=== PATIENT | female | born 1990 | race American Indian/Alaskan Native ===

== ENCOUNTER 2016-06-12 00:11 | Inpatient (IN) | payer MEDICAID ==
[2016-06-12] MEDS ORDERED: XYLOCAINE 2% INFILTRATI ONE ×2 (00:40→06:11)
[2016-06-12] MEDS ORDERED: POLYCILLIN/NS 2 GM/100 ML 2 GM/100 ML BAG IV ONE (00:40)
[2016-06-12] MEDS ORDERED: MINERAL OIL PO PRN (00:40)
[2016-06-12] MEDS ORDERED: ePHEDrine SULFATE IV PRN ×3 (00:40→07:49)
[2016-06-12] MEDS ORDERED: BRETHINE IVP PRN ×2 (00:40→06:11)
[2016-06-12] MEDS ORDERED: BRETHINE SUB-Q PRN ×2 (00:40→06:11)
[2016-06-12] MEDS ORDERED: ZOFRAN IV PRN (00:40)
[2016-06-12] MEDS ORDERED: PITOCin/NS 30 UNIT/500ML 30 UNITS/500 ML BAG IV SCH ×3 (01:00→07:00)
[2016-06-12] MEDS ORDERED: PITOCin/NS 20 UNIT/1000ML DRIP 20 UNITS/1,000 ML BAG IV SCH ×2 (01:00→07:00)
[2016-06-12] MEDS ORDERED: LACTATED RINGERS 1,000 ML IV SCH ×2 (01:00→07:00)
[2016-06-12 01:25] LABS: Hematocrit 36.9 % (30.3-42.9); Hemoglobin 12.5 gm/dl (10.1-14.3); Mean Corpuscular HGB Conc 34 % (30-34); Mean Corpuscular Hemoglobin 33 pg (28-32); Mean Corpuscular Volume 98 fl (79-97); Platelet Count 216 K/mm3 (140-440); Red Blood Count 3.77 M/mm3 (3.65-5.03); Red Cell Distribution Width 13.9 % (13.2-15.2); White Blood Count 10.7 K/mm3 (4.5-11.0)
[2016-06-12] MEDS: STADOL IV PRN ×2 (04:18→07:42)
[2016-06-12] MEDS ORDERED: POLYCILLIN/NS 1 GM/50 ML 1 GM/50 ML BAG IV SCH (05:00)
[2016-06-12] MEDS ORDERED: PHENERGAN PR PRN (06:11)
[2016-06-12] MEDS ORDERED: SUBLIMAZE IV PRN (06:11)
[2016-06-12] MEDS ORDERED: NARCAN 0.4 MG/1 ML IV PRN (06:11)
--- NOTE | 2016-06-12 06:11 | History and Physical Report ---
History of Present Illness Date of examination: 06/12/16 Date of admission: 06/12/16 01:27 Chief complaint: My water broke History of present illness: 26 yo at 40 weeks 1 day with EDC 06/11/2016, known GBS pos, previous 7# babies admitted with SROM, now in labor at 2 cm Remainder of H&P from MPV and confirmed today. OB Intake Ethnicity: Nondenominational: pentecostalism Father of baby: Leti Granado FOB contact #: [phone] Vital Signs Height: 66 in. Weight (lb): 163 BMI: 26.4 BP: 116/ 62 mm Hg Ur. Protein: Negative Ur. Glucose: Negative Chief Complaint/Current Status: c/o missed peroid...........igarcia pt c/o nauseated UPT pos Menstrual History Regularity: regular Menses every: 28 days Duration: 5 LMP: 09/05/2015 LMP reliability: definite LMP character: normal test type: urine test Date: 11/02/2015 BC at conception: BCP Planned ? no EDC Calculations LMP: 06/11/2016 Past History : 5 Term Births: 2 Living Children: 2 Para: 2 Mult. Births: 0 Prev : 0 Aborta: 2 Elect. Ab: 1 Spont. Ab: 1 # 1 Delivery date: 2007 Delivery type: SAB # 2 Delivery date: 2008 Delivery type: EAB # 3 Delivery date: 2009 Weeks Gestation: 39 Delivery type: Delivery location: [facility] Sex: Male weight: 7# # 4 Delivery date: 2013 Weeks Gestation: 40 Delivery type: Delivery location: [facility] Infant Sex: Female weight: 6#14 Past Medical History: Negative Past Medical History Past Surgical History: negative Past Medical History Anesthesia Complications: negative Anemia: negative Autoimmune Disorder: negative Bleeding Disorder: negative Blood Transfusions: negative Breast Disease: negative Diabetes: negative Heart Disease: negative Hypertension: negative Hepatitis/Liver Disease: negative Kidney Disease/UTI: negative Neurologic/Epilepsy/Migraines: negative Phlebitis/Varicosities: negative Psychiatric: negative Pulmonary Disease/Asthma: negative Thyroid Disease: negative Hospitalizations: negative 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 Infection History Hx of STD: chlamydia HIV Risk Eval: no Hepatitis B Risk Eval: low risk Personal hx. of genital herpes: no Partner hx. of genital herpes: no Rash, Viral, or Febrile illness since last LMP? no Varicella/Chicken Pox Status: Previous Disease TB Risk: no Genetic History Congenital Heart Defect: Mom: no Dad: no Leslee Disease: Mom: no Dad: no Thalassemia Mom: no Dad: no Neural Tube Defect Mom: no Dad: no Down's Syndrome Mom: no Dad: no Kasi-Sachs Mom: no Dad: no Sickle Cell Disease/Trait Mom: no Dad: no Hemophilia Mom: no Dad: no Muscular Dystrophy Mom: no Dad: no Cystic Fibrosis Mom: no Dad: no [place] Chorea Mom: no Dad: no Mental Retardation Mom: no Dad: no Fragile X Mom: no Dad: no Other Genetic/Chromosomal Disorder Mom: no Dad: no Child w/other defect Mom: no Dad: no Enviromental Exposures Xray Exposure: no Medication, drug, or alcohol use since LMP: no Chemical/Other Exposure: no Exposure to Cat Liter: no Hx of Parvovirus (Fifth Disease): no Occupational Exposure to Children: none Active Medications (reviewed today): None Current Allergies (reviewed today): No known allergies Laboratory Results Date/Time Collected: 11/02/2015 Routine Urinalysis Protein: Negative Glucose: Negative Urine HCG: positive Review of Systems General Denies fever, chills, sweats, anorexia, fatigue, weakness, malaise, weight loss and sleep disorder. Complains of nausea. Denies vomiting, headache, swelling of legs, abdominal pain, vaginal discharge, vaginal bleeding and contractions. Denies vaginal discharge, incontinence, dysuria, hematuria, urinary frequency, amenorrhea, menorrhagia, abnormal vaginal bleeding, pelvic pain, genital sores, decreased libido, painful periods, painful sex, urinary urgency, hot flashes, vaginal dryness, vaginal itching and vaginal odor. CV Denies chest pains, palpitations, syncope, dyspnea on exertion, orthopnea, PND and peripheral edema. Resp Denies cough, dyspnea at rest, excessive sputum, hemoptysis, wheezing and pleurisy. GI Denies nausea, vomiting, diarrhea, constipation, change in bowel habits, abdominal pain, melena, hematochezia, jaundice, gas/bloating, indigestion/ heartburn, dysphagia and odynophagia. Endo Denies cold intolerance, heat intolerance, polydipsia, polyphagia, polyuria and unusual weight change. Breast Denies left breast lump, right breast lump, nipple discharge, bloody discharge from nipple, breast pain, abnormal mammogram and breast enlargement. MS Denies back pain, joint pain, joint swelling, muscle cramps, muscle weakness, stiffness, arthritis, sciatica, restless legs, leg pain at night and leg pain with exertion. Derm Denies rash, itching, dryness and suspicious lesions. Neuro Denies paralysis, paresthesias, headache, seizures, tremors, vertigo, transient blindness, frequent falls, frequent headaches and difficulty walking. Psych Denies depression, anxiety, irritability and mood swings. Eyes Denies blurring, diplopia, irritation, discharge, vision loss, eye pain and photophobia. ENT Denies earache, ear discharge, tinnitus, decreased hearing, nasal congestion, nosebleeds, sore throat and hoarseness. Allergy Denies urticaria, allergic rash, hay fever and recurrent infections. Heme Denies abnormal bruising, bleeding and enlarged lymph nodes. PHYSICAL EXAM HEENT: PERRLA, normal conjunctiva, external nose and nasal mucosa normal, oropharynx clear Neck/Thyroid: supple, thyroid normal Skin no significant abnormal lesions or rashes Chest: respiratory effort normal, clear to auscultation Breasts: normal without skin changes or masses CV: regular, normal S1-S2, no murmur, no rub, no gallop Abdomen: normal bowel sounds, soft, nontender, no HSM Musculoskeletal: grossly normal ROM in joints, no joint tenderness or muscle weakness Neuro: grossly normal DTRs, sensation, strength, cranial nerves Extremities: no clubbing, cyanosis, or edema BATH TESTER Exams Vulva/Vagina: No lesions, normal BUS, normal rugae Cervix: No lesions; no cervical motion tenderness Uterus: normal size and position, midline, mobile Fundal Ht: ~8 Adnexae: no masses or tenderness Rectovaginal: no masses or tenderness Flowsheet View for Follow-up Visit Weight: 163 Blood pressure: 116 / 62 Urine protein: Negative Urine glucose: Negative Fundal height: ~8 Education Provided: 1) Education provided today and information packet given. 2) Education packet given; please call if you have any questions. 3) Review normal weight gain and proper nutrition during . 4) Advice on healthy diet for reviewed and information provided. 5) Elevate head of bed at least 6 inches (raise bed posts not just with pillows ); small frequent meals and take TUMS as needed. 6) Stressed importance of taking folic acid and vitamins. 7) Recommended referral to WIC program; information given, patient to consider. 8) Stressed importance of good dental care and information given. 9) Hazards of smoking and reviewed; smoking cessation strongly encouraged and smoking cessation techniques reviewed. 10) Stressed the risks of alcohol and drug use in including risk of premature delivery, small baby (SGA), abruption, and . 11) Advised to avoid intimate contact with cats, avoid cat litter, and the ingestion of raw meat. 12) Reviewed recommended physical activity level during . 13) Information regarding travel during reviewed and given. 14) Seat belt use during reviewed. 15) Patient Will deliver at [facility]. Impression & Recommendations: Problem # 1: Irregular menses (ICD-626.4) ([id number]) Orders: Urine Test (UPT) (CPT-59831) Vaginal Delivery (CPT-27134) Ofc Vst New (CPT-34742) Handling specimen fee (CPT-77161) Pap(<30yo) CT/NG rflx HR HPV ([id number])([id number]) (CPT-74363) Missed period US (CPT-13298) Urine Chemstrip (CPT-77755) Past History - Obstetrical History : 5 Medications and Allergies Allergies Allergy/AdvReac Type Severity Reaction Status Date / Time No Known Allergies Allergy Verified 05/30/13 09:24 Home Medications Medication Instructions Recorded Confirmed Last Taken Type Pnv95/Ferrous Fumarate/FA 1 each PO QDAY 05/02/13 05/30/13 05/30/13 07:00 History [ Vitamins] Ibuprofen [Motrin 600 MG tab] 600 mg PO Q8H PRN #21 tablet 07/14/13 Unknown Rx Active Meds: Active Medications Butorphanol Tartrate (Stadol) 2 mg IV Q2H PRN PRN Reason: Pain , Severe (7-10) Last Admin: 06/12/16 04:18 Dose: 2 mg Ampicillin Sodium (Polycillin/Ns 1 Gm/50 Ml) 1 gm in 50 mls @ 100 mls/hr IV Q4H CHRISTEL PRN Reason: Protocol Last Admin: 06/12/16 05:47 Dose: 100 mls/hr Lactated Ringer's (Lactated Ringers) 1,000 mls @ 125 mls/hr IV DIRECT CHRISTEL Last Admin: 06/12/16 01:40 Dose: 125 mls/hr Oxytocin/Sodium Chloride (Pitocin/Ns 20 Unit/1000ml Drip) 20 units in 1,000 mls @ 125 mls/hr IV DIRECT CHRISTEL Oxytocin/Sodium Chloride (Pitocin/Ns 30 Unit/500ml) 30 units in 500 mls @ 4 mls /hr IV TITR CHRISTEL PRN Reason: Protocol Last Titration: 06/12/16 03:55 Dose: 6 mls/hr, 6 mls/hr Mineral Oil (Mineral Oil) 30 ml PO QHS PRN PRN Reason: Constipation Ondansetron HCl (Zofran) 4 mg IV Q8H PRN PRN Reason: Nausea And Vomiting - Vital Signs Vital signs: Vital Signs Pulse BP 88 135/90 06/12/16 00:37 06/12/16 00:37 Temp Pulse Resp BP Pulse Ox 97.8 F 85 16 121/76 98 06/12/16 05:53 06/12/16 05:41 06/12/16 05:53 06/12/16 05:41 06/12/16 01:26 Results Result Diagrams: 06/12/16 00:52 Abnormal lab results 06/12/16 Range/Units 00:52 MCV 98 H (79-97) fl MCH 33 H (28-32) pg All other labs normal. Assessment and Plan - Patient Problems (1) Active labor at term Current Visit: Yes Status: Acute
[2016-06-12] MEDS ORDERED: ePHEDrine SULFATE ONE (07:14)
--- NOTE | 2016-06-12 07:39 | Progress Note ---
Assessment and Plan pt crying out with pain SVE 6,100,0 ISE/IUPC placed Pit @ 8mu. Bolus complete Epidural to be placed. Subjective - Subjective Date of service: 06/12/16 (variable decels noted) Patient reports: movement normal, contractions (req epidural) Objective - Vital Signs Vital Signs: Vital Signs - 12hr 06/12/16 06/12/16 06/12/16 00:37 00:45 01:08 Temperature 98.3 F Pulse Rate 88 86 Respiratory 18 Rate Blood Pressure 135/90 131/91 O2 Sat by Pulse Oximetry 06/12/16 06/12/16 06/12/16 01:16 01:21 01:26 Temperature Pulse Rate 92 H 74 84 Respiratory Rate Blood Pressure O2 Sat by Pulse 98 97 98 Oximetry 06/12/16 06/12/16 06/12/16 01:41 02:10 02:40 Temperature Pulse Rate 83 79 91 H Respiratory Rate Blood Pressure 126/78 128/80 139/99 O2 Sat by Pulse Oximetry 06/12/16 06/12/16 06/12/16 03:12 03:42 04:12 Temperature Pulse Rate 86 78 78 Respiratory Rate Blood Pressure 121/78 127/78 139/84 O2 Sat by Pulse Oximetry 06/12/16 06/12/16 06/12/16 04:41 05:11 05:41 Temperature Pulse Rate 73 79 85 Respiratory Rate Blood Pressure 125/66 128/69 121/76 O2 Sat by Pulse Oximetry 06/12/16 06/12/16 06/12/16 05:53 06:11 06:41 Temperature 97.8 F Pulse Rate 72 84 Respiratory 16 Rate Blood Pressure 135/73 133/79 O2 Sat by Pulse Oximetry 06/12/16 06/12/16 06/12/16 07:03 07:08 07:11 Temperature Pulse Rate 78 92 H 82 Respiratory Rate Blood Pressure 128/60 O2 Sat by Pulse 98 100 Oximetry 06/12/16 06/12/16 06/12/16 07:13 07:18 07:23 Temperature Pulse Rate 89 90 100 H Respiratory Rate Blood Pressure O2 Sat by Pulse 98 100 100 Oximetry 06/12/16 06/12/16 07:28 07:33 Temperature Pulse Rate 92 H 111 H Respiratory Rate Blood Pressure O2 Sat by Pulse 100 98 Oximetry - Exam Breasts: deferred Cardiovascular: Regular rate Lungs: Normal air movement Abdomen: Present: normal appearance, soft. Absent: distention, tenderness Uterus: Present: normal FHR: auscultation normal, category 1 Uterine Contraction Monitor Mode: Internal Cervical Dilatation: 6 (ISE/IUPC placed) Cervical Effacement Percentage: 100 station: 0 Uterine Contraction Pattern: Regular Uterine Tone Measurement Phase: Resting Uterine Contraction Intensity: Moderate Extremities: normal Deep Tendon Reflex Grade: Normal +2 - Labs Labs: Abnormal Labs 06/12/16 00:52 MCV 98 H MCH 33 H Laboratory Results - last 24 hr 06/12/16 06/12/16 00:52 00:52 WBC 10.7 RBC 3.77 Hgb 12.5 Hct 36.9 MCV 98 H MCH 33 H MCHC 34 RDW 13.9 Plt Count 216 Blood Type O POSITIVE Antibody Screen Negative
[2016-06-12] MEDS ORDERED: NARCAN 2 MG/2 ML IV PRN (07:49)
--- NOTE | 2016-06-12 07:49 | Anesthesia Consultation ---
Anesthesia Consult and Med Hx Date of service: 06/12/16 - Airway Anesthetic Teeth Evaluation: Good ROM Head & Neck: Adequate Mental/Hyoid Distance: Adequate Mallampati Class: Class II Intubation Access Assessment: Good - Pulmonary Exam CTA: Yes - Cardiac Exam Cardiac Exam: No Murmur - Pre-Operative Health Status ASA Pre-Surgery Classification: ASA2 Proposed Anesthetic Plan: Epidural - Pulmonary Hx Smoking: No Hx Asthma: No Hx Respiratory Symptoms: No SOB: No COPD: No Hx Pneumonia: No Hx Sleep Apnea: No - Cardiovascular System Hx Hypertension: No Hx Coronary Artery Disease: No Hx Heart Attack/AMI: No Hx Angina: No Hx Percutaneous Transluminal Coronary Angioplasty (PTCA): No Hx Cardia Arrhythmia: No Hx Pacemaker: No Hx Internal Defibrillator: No Hx Valvular Heart Disease: No Hx Heart Murmur: No Hx Peripheral Vascular Disease: No - Central Nervous System Hx Neuromuscular Disorder: No Hx Seizures: No CVA: No Hx Back Pain: No Hx Psychiatric Problems: No - Gastrointestinal Hx Ulcer: No Hx Gastroesophageal Reflux Disease: No - Endocrine Hx Renal Disease: No Hx End Stage Renal Disease: No Hx Liver Disease: No Hx Insulin Dependent Diabetes: No Hx Non-Insulin Dependent Diabetes: No Hx Thyroid Disease: No Hx Hypothyroidism: No Hx Hyperthyroidism: No - Hematic Hx Anemia: No Hx Sickle Cell Disease: No - Other Systems Hx Alcohol Use: Yes Hx Substance Use: No Hx Cancer: No Hx Obesity: No
[2016-06-12] MEDS ORDERED: fentaNYL-BUPIV 2 MCG/ML-0.125% 200 MCG/100 ML BAG EPIDURAL SCH (08:00)
[2016-06-12] MEDS ORDERED: LANSINOH TP PRN (08:57)
[2016-06-12] MEDS ORDERED: PHENERGAN PO PRN (08:57)
[2016-06-12] MEDS ORDERED: DERMOPLAST TP PRN (08:57)
[2016-06-12] MEDS ORDERED: DULCOLAX PR PRN (08:57)
[2016-06-12] MEDS ORDERED: MILK OF MAGNESIA PO PRN (08:57)
[2016-06-12] MEDS ORDERED: TUCKS PAD TP PRN (08:57)
[2016-06-12] MEDS ORDERED: TYLENOL PO PRN (08:57)
[2016-06-12] MEDS ORDERED: BENADRYL PO PRN (08:57)
[2016-06-12] MEDS ORDERED: SODIUM CHLORIDE FLUSH SYRINGE 10 ML IV NR (09:00)
[2016-06-12] MEDS ORDERED: COLACE PO SCH (10:00)
[2016-06-12] MEDS ORDERED: PRENATAL VITAMIN PO SCH (10:00)
[2016-06-12] MEDS: NORCO 5/325 PO PRN ×2 (11:25→17:45)
[2016-06-12] MEDS: MOTRIN PO SCH ×3 (11:27→23:54)
--- NOTE | 2016-06-12 13:46 | Procedure Note ---
OB Delivery Note - Delivery Date of Delivery: 06/12/16 Model Technician: SHELLEY ESPINOSA Estimated blood loss: other (400cc) - Vaginal Delivery presentation: vertex Delivery position: OA Intrapartum events: meconium Delivery induction: none Delivery augmentation: pitocin Delivery monitor: internal FHT, internal uterine Route of delivery: Delivery placenta: spontaneous Delivery cord: 3 umbilical vessels Episiotomy: none Delivery laceration: none Anesthesia: epidural Delivery comments: live born male over intact perineum Baby handed to waiting NICU team immediately due to thick meconium. Cord blood obt Placenta and membrane delivered complete and intact, 3 vessel cord. Pit IVFs Baby responded well to stim, suction, drying. 8/9, EBL 400, Wgt 8-11. Mom and baby remain LDR stable - Infant A at 1 minute: 8 at 5 minutes: 9 Infant Gender: Male (wgt 8-11)
[2016-06-13 01:01] LABS: Hematocrit 30.7 % (30.3-42.9); Hemoglobin 10.2 gm/dl (10.1-14.3)
[2016-06-13] MEDS: MOTRIN PO SCH (05:42)
--- NOTE | 2016-06-13 08:23 | Discharge Summary ---
Providers - Providers Date of Admission: 06/12/16 01:27 Date of discharge: 06/13/16 (desires d/c home today) Attending physician: TRACY RICHMOND Primary care physician: TRACY RICHMOND Hospitalization Reason for admission: active labor Delivery: Episiotomy: none Laceration: none Other procedures: none complications: none Discharge diagnosis: IUP at term delivered baby: male Hospital course: uncomplicated vaginal Condition at discharge: Good Disposition: DISCHARGED TO HOME OR SELFCARE - Discharge Diagnoses (1) (normal spontaneous vaginal delivery) Status: Acute Plan - Provider Discharge Summary Activity: routine, no sex for 6 weeks, no heavy lifting 4 weeks, no strenuous exercise Diet: routine Instructions: routine Additional instructions: [] Smoking cessation referral if applicable(refer to patient education folder for contact #) [] Refer to [facility] Booklet Call your doctor immediately for: * Fever > 100.5 * Heavy vaginal bleeding ( >1 pad per hour) * Severe persistent headache * Shortness of breath * Reddened, hot, painful area to leg or breast * Drainage or odor from incision. * Keep incision clean and dry at all times and follow doctor's instructions regarding bathing/showering - Follow up plan Follow up: TRACY RICHMOND MD [Primary Care Provider] - 7 Days (Congratulations! Please call [phone] to schedule your son's circumcision in 1 week and your visit in 4-6 weeks. bring EMLA cream with you to your son's appointment and await further instructions. Call for any questions or concerns.)
--- NOTE | 2016-06-13 08:25 | Progress Note ---
Assessment and Plan patient w/o complaints, lochia scant, VSSAF, H&H stable 10.2/30.7. Patient desires d/c home today. - Patient Problems (1) (normal spontaneous vaginal delivery) Current Visit: Yes Status: Acute Subjective - Subjective Date of service: 06/13/16 Principal diagnosis: day #1 s/p Patient reports: appetite normal, voiding normally, pain well controlled, ambulating normally, no dizzy ambulation, no nauseated : doing well, nursing well Objective - Vital Signs Latest vital signs: Vital Signs Temp Pulse Pulse Resp BP BP Pulse Ox 06/13/16 00:00 98.0 F 82 20 118/67 06/12/16 16:15 98.5 F 79 20 124/82 06/12/16 12:41 98.1 F 78 20 128/78 06/12/16 10:55 98.4 F 86 20 120/80 06/12/16 10:15 82 113/70 06/12/16 10:00 74 118/69 06/12/16 09:45 71 116/67 06/12/16 09:30 84 127/74 06/12/16 09:15 85 119/70 06/12/16 09:00 85 117/69 06/12/16 08:45 86 126/70 06/12/16 08:35 89 100 06/12/16 08:30 89 127/72 100 06/12/16 08:25 80 96 Intake and Output 06/12/16 06/13/16 06/13/16 22:59 06:59 14:59 Intake Total 480 240 Output Total 1700 700 Balance -1220 -460 Intake: Oral 480 240 Output: Urine 1700 700 Void 1700 700 Other: Total, Intake Amount 120 240 Total, Output Amount 800 700 # Voids Void 1 - Exam Breasts: Present: normal Cardiovascular: Present: Regular rate Lungs: Present: Clear to auscultation, Normal air movement Abdomen: Present: normal appearance, soft Vulva: both: normal Uterus: Present: normal, firm, fundal height at umbilicus Extremities: Present: normal
[2016-06-13] MEDS ORDERED: M-M-R II VACCINE SUB-Q ONE (08:57)
[2016-06-13] MEDS ORDERED: BOOSTRIX IM ONE (08:57)
[2016-06-13 10:23] VITALS: BP 119/73
== END 2016-06-13 14:00 | disposition home or self-care (01) | DRG 775 ==
LOC: TRG 00:11 → LD 01:27 → OB 11:14
PROVIDERS: ADMIT Obstetrics & Gynecology; ATTEND Obstetrics & Gynecology
PROC: 10E0XZZ Delivery of Products of Conception, External Approach (ICD-10-PCS; principal; 2016-06-12)
PROC: 00HU33Z Insertion of Infusion Device into Spinal Canal, Percutaneous Approach (ICD-10-PCS; 2016-06-12)
PROC: 3E0R3CZ (ICD-10-PCS; 2016-06-12)
DX: O42.92 Full-term premature rupture of membranes, unspecified as to length of time between rupture and onset of labor (principal); O99.824 Streptococcus B carrier state complicating childbirth; O77.0 Labor and delivery complicated by meconium in amniotic fluid; Z3A.40 40 weeks gestation of pregnancy; Z37.0 Single live birth
CPT/HCPCS: 36415; 85014; 85018; 85027; 86592; 86850; 86900; 86901; 99211; G0463; J0290; J0595; J2405; J2590; J7120

== ENCOUNTER 2017-12-20 14:48 | Outpatient (CLI) | payer MEDICAID ==
[2017-12-20 15:30] VITALS: BP 123/73
[2017-12-20] MEDS ORDERED: VISTARIL PO PRN (16:16)
--- NOTE | 2017-12-20 16:23 | Ultrasound Report ---
FINAL REPORT EXAM: US OB LIMITED HISTORY: r/o srom COMPARISON: None. TECHNIQUE: Limited obstetric ultrasound was performed for evaluation of amniotic fluid index FINDINGS: Amniotic fluid index is 10.4 centimeters. There is a single live intrauterine in cephalic presentation. heart rate is 127 beats per minute. IMPRESSION: Normal amniotic fluid index of 10.4 centimeters.
== END 2017-12-20 16:32 | disposition home or self-care (01) ==
LOC: TRG 14:48
PROVIDERS: ATTEND Obstetrics & Gynecology
DX: O47.1 False labor at or after 37 completed weeks of gestation (principal); Z3A.39 39 weeks gestation of pregnancy
CPT/HCPCS: 76815; Q0177

== ENCOUNTER 2017-12-24 08:07 | Outpatient (CLI) | payer MEDICAID ==
[2017-12-24 08:35] VITALS: BP 118/74
== END 2017-12-24 09:30 | disposition home or self-care (01) ==
LOC: TRG 08:07
PROVIDERS: ATTEND Obstetrics & Gynecology
DX: O47.1 False labor at or after 37 completed weeks of gestation (principal); Z3A.40 40 weeks gestation of pregnancy
CPT/HCPCS: 59025

== ENCOUNTER 2017-12-29 17:13 | Inpatient (IN) | payer MEDICAID ==
[2017-12-29] MEDS ORDERED: SUBLIMAZE IV PRN (17:27)
[2017-12-29] MEDS ORDERED: MINERAL OIL PO PRN (17:27)
[2017-12-29] MEDS ORDERED: BRETHINE SUB-Q PRN (17:27)
[2017-12-29] MEDS ORDERED: ZOFRAN IV PRN (17:27)
[2017-12-29] MEDS ORDERED: POLYCILLIN/NS 2 GM/100 ML 2 GM/100 ML BAG IV ONE ×2 (17:27→17:34)
[2017-12-29] MEDS ORDERED: LACTATED RINGERS 1,000 ML ONE (17:34)
--- NOTE | 2017-12-29 17:53 | History and Physical Report ---
History of Present Illness Date of examination: 12/29/17 (SROM) Date of admission: 12/29/17 17:13 History of present illness: EDC Calculations LMP: 12/24/2017 Past History : 6 Term Births: 3 Living Children: 3 Para: 3 Mult. Births: 0 Prev : 0 Aborta: 2 Elect. Ab: 1 Spont. Ab: 1 # 1 Delivery date: 2007 Delivery type: SAB # 2 Delivery date: 2008 Delivery type: EAB # 3 Delivery date: 2009 Weeks Gestation: 39 Delivery type: Delivery location: [facility] Sex: Male weight: 7# # 4 Delivery date: 2013 Weeks Gestation: 40 Delivery type: Delivery location: [facility] Infant Sex: Female weight: 6#14 # 5 Delivery date: 06/12/2016 Weeks Gestation: 40 Delivery type: Vaginal Anesthesia type: epidural Delivery location: [facility] Infant Sex: male weight: 8.69 Comments: meconium;GBS Past Medical History: Reviewed history from 11/02/2015 and no changes required: Negative Past Medical History Past Surgical History: D&C: (2008) Family History Summary: Mother (biol.) - Has No Family History of Ovarvian Cancer - Entered On: 06/11/2017 Mother (biol.) - Has No Family History of Colon Cancer - Entered On: 06/11/2017 Mother (biol.) - Has No Family History of Breast Cancer - Entered On: 06/11/2017 Social History: Patient is single [employer] Smoking History: Patient has never smoked. Risk Factors: Smoked Tobacco Use: Never smoker Smokeless Tobacco Use: Never Passive smoke exposure: no Drug use: no HIV high-risk behavior: no Caffeine use: 0 drinks per day Alcohol use: no Exercise: yes Seatbelt use: 100 % Family History Risk Factors: Family History of AR in females < 65 years old: no Family History of AR in males < 55 years old: no Dietary Counseling: pn yes Past Medical History Surgery (Non-nightclub manager): D&C: (2008) Abnormal PAP: negative SHARONDA Exposure: negative Infertility: negative Uterine Anomaly: negative Uterine Surgery (not C/S): negative Other Gynecologic Problems: negative Social Hx: Patient is single [employer] Smoking History: Patient has never smoked. Infection History Hx of STD: chlamydia HIV Risk Eval: no Hepatitis B Risk Eval: low risk Personal hx. of genital herpes: no Partner hx. of genital herpes: no Genetic History Congenital Heart Defect: Mom: no Dad: no Leslee Disease: Mom: no Dad: no Thalassemia Mom: no Dad: no Neural Tube Defect Mom: no Dad: no Down's Syndrome Mom: no Dad: no Kasi-Sachs Mom: no Dad: no Sickle Cell Disease/Trait Mom: no Dad: no Hemophilia Mom: no Dad: no Muscular Dystrophy Mom: no Dad: no Cystic Fibrosis Mom: no Dad: no [place] Chorea Mom: no Dad: no Mental Retardation Mom: no Dad: no Fragile X Mom: no Dad: no Other Genetic/Chromosomal Disorder Mom: no Dad: no Child w/other defect Mom: no Dad: no Enviromental Exposures Xray Exposure: no Medication, drug, or alcohol use since LMP: no Chemical/Other Exposure: no Exposure to Cat Liter: no Active Medications (reviewed today): SPRINTEC 28 0.25-35 MG-MCG ORAL TABLET (NORGESTIMATE-ETH ESTRADIOL) 1 po qd Current Allergies (reviewed today): No known allergies Past History - Obstetrical History Expected Date of Delivery: 12/24/17 Actual Gestation: 40 Week(s) 5 Day(s) : 6 Para: 3 Hx # Term Pregnancies: 3 Number of Pregnancies: 0 Spontaneous Abortions: 1 Induced : 1 Number of Living Children: 3 Medications and Allergies Allergies Allergy/AdvReac Type Severity Reaction Status Date / Time No Known Allergies Allergy Verified 05/30/13 09:24 Home Medications Medication Instructions Recorded Confirmed Last Taken Type Pnv95/Ferrous Fumarate/FA 1 each PO QDAY 05/02/13 06/12/16 1 Day Ago History [ Vitamins] ~06/11/16 Ibuprofen [Motrin 600 MG tab] 600 mg PO Q8H PRN #21 tablet 07/14/13 06/12/16 Unknown Rx Ibuprofen [Motrin 800 MG tab] 800 mg PO Q8HR PRN #30 tablet 06/13/16 Unknown Rx Lidocain2.5%/Prilocai2.5% [Emla] 5 gm TP ONCE PRN #1 tube 06/13/16 Unknown Rx Ibuprofen [Motrin 800 MG tab] 800 mg PO TID PRN #30 tablet 12/29/17 Unknown Rx Lidocain2.5%/Prilocai2.5% [Emla] 5 gm TP PRN #1 tube 12/29/17 Unknown Rx - Physical Exam Breasts: Positive: deferred Cardiovascular: Regular rate, Normal S1, Normal S2 Lungs: Positive: Normal air movement Abdomen: Positive: normal appearance, soft, normal bowel sounds. Negative: distention, tenderness Genitourinary (Female): Positive: normal external genitalia Vulva: both: normal Vagina: Positive: normal moisture. Negative: discharge Cervix: Negative: lesion, discharge Uterus: Positive: normal size, normal contour Adnexa: both: normal Anus/Rectum: Positive: normal perianal skin, heme negative. Negative: rectal mass, hemorrhoids Extremities: Positive: normal Deep Tendon Reflex Grade: Normal +2 - Obstetrical FHR: category 1 Uterine Contraction Monitor Mode: External Cervical Dilatation: 4 (clear fluid) Cervical Effacement Percentage: 60 (cervix very posterior) station: -2 Uterine Contraction Pattern: Irregular Uterine Tone Measurement Phase: Resting Uterine Contraction Intensity: Mild Results Result Diagrams: 12/29/17 17:10 All other labs normal. Strep Gp B MARÍA ELENA [A] Positive HBsAg Screen Negative Negative *1 RPR Non Reactive Non Reactive *2 Rubella Antibodies, IgG 5.05 index Immune >0.99 *3 Non-immune <0.90 Equivocal 0.90 - 0.99 Immune >0.99 ABO Grouping O *4 Rh Factor Positive *5 Please note: Prior records for this patient's ABO / Rh type are not available for additional verification. Antibody Screen Negative Negative *6 WBC 7.4 x10E3/uL 3.4-10.8 *7 RBC 3.80 x10E6/uL 3.77-5.28 *8 Hemoglobin 12.2 g/dL 11.1-15.9 *9 Hematocrit 35.9 % 34.0-46.6 *10 MCV 95 fL 79-97 *11 MCH 32.1 pg 26.6-33.0 *12 MCHC 34.0 g/dL 31.5-35.7 *13 RDW 14.2 % 12.3-15.4 *14 Platelets 351 x10E3/uL 150-379 *15 Neutrophils 63 % Not Estab. *16 Lymphs 31 % Not Estab. *17 Monocytes 5 % Not Estab. *18 Eos 1 % Not Estab. *19 Basos 0 % Not Estab. *20 ! Immature Cells <No Reported Value> *21 Neutrophils (Absolute) 4.7 x10E3/uL 1.4-7.0 *22 Lymphs (Absolute) 2.3 x10E3/uL 0.7-3.1 *23 Monocytes(Absolute) 0.4 x10E3/uL 0.1-0.9 *24 Eos (Absolute) 0.0 x10E3/uL 0.0-0.4 *25 Baso (Absolute) 0.0 x10E3/uL 0.0-0.2 *26 ! Immature Granulocytes 0 % Not Estab. *27 ! Immature Grans (Abs) 0.0 x10E3/uL 0.0-0.1 *28 ! NRBC <No Reported Value> *29 Hematology Comments: <No Reported Value> *30 Tests: (2) AFP Tetra ([id number]) ! Results Report *31 ! Test Results: *Screen Negative* *32 ! Tests: (3) Panel 796025 ([id number]) HIV Screen 4th Generation wRfx Non Reactive Non Reactive *55 Tests: (4) HCV Ab w/Rflx to Verification ([id number]) ! HCV Ab <0.1 s/co ratio 0.0-0.9 *56 Tests: (5) Comment: ([id number]) ! Comment: SPRCS *57 Non reactive HCV antibody screen is consistent with no HCV infection, unless recent infection is suspected or other evidence exists to indicate HCV infection. Tests: (6) Urine Culture, Routine ([id number]) Urine Culture, Routine Final report *58 Tests: (7) Result ([id number]) ! Result 1 No growth *59 Assessment and Plan 27yo @ 40 weeks with SROM in early labor. GBS+ Orders in EMR aware
[2017-12-29] MEDS ORDERED: PITOCin/NS 30 UNIT/500ML 30 UNITS/500 ML BAG IV SCH (18:00)
[2017-12-29] MEDS ORDERED: LACTATED RINGERS 1,000 ML IV SCH (18:00)
[2017-12-29] MEDS ORDERED: PITOCin/NS 20 UNIT/1000ML DRIP 20 UNITS/1,000 ML BAG IV SCH (18:00)
[2017-12-29 18:02] LABS: Hemoglobin 13.5 gm/dl (10.1-14.3); Mean Corpuscular HGB Conc 36 % (30-34); Mean Corpuscular Hemoglobin 35 pg (28-32); Mean Corpuscular Volume 98 fl (79-97); Platelet Count 264 K/mm3 (140-440); Red Cell Distribution Width 14.2 % (13.2-15.2)
[2017-12-29] MEDS ORDERED: NARCAN 2 MG/2 ML IV PRN (18:06)
--- NOTE | 2017-12-29 18:06 | Anesthesia Consultation ---
Anesthesia Consult and Med Hx Date of service: 12/29/17 - Airway Anesthetic Teeth Evaluation: Good ROM Head & Neck: Adequate Mental/Hyoid Distance: Adequate Mallampati Class: Class II Intubation Access Assessment: Probably Good - Pre-Operative Health Status ASA Pre-Surgery Classification: ASA2 Proposed Anesthetic Plan: Epidural, Spinal - Pulmonary Hx Smoking: No Hx Asthma: No Hx Respiratory Symptoms: No SOB: No COPD: No Hx Pneumonia: No Hx Sleep Apnea: No - Cardiovascular System Hx Hypertension: No Hx Coronary Artery Disease: No Hx Heart Attack/AMI: No Hx Angina: No Hx Percutaneous Transluminal Coronary Angioplasty (PTCA): No Hx Cardia Arrhythmia: No Hx Pacemaker: No Hx Internal Defibrillator: No Hx Valvular Heart Disease: No Hx Heart Murmur: No Hx Peripheral Vascular Disease: No - Central Nervous System Hx Neuromuscular Disorder: No Hx Seizures: No CVA: No Hx Back Pain: No Hx Psychiatric Problems: No - Gastrointestinal Hx Ulcer: No Hx Gastroesophageal Reflux Disease: No - Endocrine Hx Renal Disease: No Hx End Stage Renal Disease: No Hx Liver Disease: No Hx Insulin Dependent Diabetes: No Hx Non-Insulin Dependent Diabetes: No Hx Thyroid Disease: No Hx Hypothyroidism: No Hx Hyperthyroidism: No - Hematic Hx Anemia: No Hx Sickle Cell Disease: No - Other Systems Hx Alcohol Use: No Hx Substance Use: No Hx Cancer: No Hx Obesity: No
[2017-12-29] MEDS ORDERED: fentaNYL-BUPIV 2 MCG/ML-0.125% 200 MCG/100 ML BAG EPIDURAL SCH (19:00)
[2017-12-29] MEDS ORDERED: XYLOCAINE 2% INFILTRATI ONE (19:00)
--- NOTE | 2017-12-29 19:34 | Progress Note ---
Assessment and Plan called by RN to redose epidural. SVE unchged. Pitocin started. Re-eval as needed. Subjective - Subjective Date of service: 12/29/17 (pt has not gotten relief with epidural; Anesthesia called) Patient reports: movement normal, contractions Objective - Vital Signs Vital Signs: Vital Signs - 12hr 12/29/17 12/29/17 12/29/17 17:50 17:53 17:56 Temperature 96.4 F L Pulse Rate 87 85 88 Respiratory 18 Rate Blood Pressure Blood Pressure 123/77 [Left] O2 Sat by Pulse 99 100 84 Oximetry 12/29/17 12/29/17 12/29/17 17:58 18:03 18:08 Temperature Pulse Rate 85 86 82 Respiratory Rate Blood Pressure Blood Pressure [Left] O2 Sat by Pulse 98 97 98 Oximetry 12/29/17 12/29/17 12/29/17 18:13 18:18 18:23 Temperature Pulse Rate 84 87 78 Respiratory Rate Blood Pressure Blood Pressure [Left] O2 Sat by Pulse 100 99 100 Oximetry 12/29/17 12/29/17 12/29/17 18:28 18:30 18:32 Temperature Pulse Rate 95 H 93 H 100 H Respiratory Rate Blood Pressure 142/82 136/79 134/75 Blood Pressure [Left] O2 Sat by Pulse 100 Oximetry 12/29/17 12/29/17 12/29/17 18:33 18:34 18:36 Temperature Pulse Rate 97 H 92 H 86 Respiratory Rate Blood Pressure 133/78 137/76 Blood Pressure [Left] O2 Sat by Pulse 99 Oximetry 12/29/17 12/29/17 12/29/17 18:38 18:41 18:42 Temperature Pulse Rate 90 88 88 Respiratory Rate Blood Pressure 123/81 127/84 127/74 Blood Pressure [Left] O2 Sat by Pulse 99 Oximetry 12/29/17 12/29/17 12/29/17 18:43 18:44 18:46 Temperature Pulse Rate 91 H 81 80 Respiratory Rate Blood Pressure 130/78 129/80 Blood Pressure [Left] O2 Sat by Pulse 99 Oximetry 12/29/17 12/29/17 12/29/17 18:48 18:53 18:58 Temperature Pulse Rate 77 82 82 Respiratory Rate Blood Pressure 131/87 130/77 Blood Pressure [Left] O2 Sat by Pulse 99 100 100 Oximetry 12/29/17 12/29/17 12/29/17 19:03 19:08 19:13 Temperature Pulse Rate 82 86 83 Respiratory Rate Blood Pressure Blood Pressure [Left] O2 Sat by Pulse 99 99 100 Oximetry 12/29/17 12/29/17 12/29/17 19:18 19:23 19:28 Temperature Pulse Rate 81 88 94 H Respiratory Rate Blood Pressure 133/82 Blood Pressure [Left] O2 Sat by Pulse 99 100 99 Oximetry - Exam Breasts: deferred Cardiovascular: Regular rate Lungs: Normal air movement Abdomen: Present: normal appearance, soft. Absent: distention, tenderness Uterus: Present: normal FHR: auscultation normal, category 1 Uterine Contraction Monitor Mode: External Cervical Dilatation: 6 Cervical Effacement Percentage: 80 station: -2 Uterine Contraction Pattern: Irregular Uterine Tone Measurement Phase: Resting Uterine Contraction Intensity: Moderate Extremities: normal Deep Tendon Reflex Grade: Normal +2 - Labs Labs: Abnormal Labs 12/29/17 17:10 WBC 12.3 H MCV 98 H MCH 35 H MCHC 36 H Laboratory Results - last 24 hr 12/29/17 12/29/17 17:10 17:10 WBC 12.3 H RBC 3.90 Hgb 13.5 Hct 38.0 MCV 98 H MCH 35 H MCHC 36 H RDW 14.2 Plt Count 264 Blood Type O POSITIVE Antibody Screen Negative
[2017-12-29] MEDS ORDERED: XYLOCAINE MPF 2% ONE ×2 (19:41)
--- NOTE | 2017-12-29 20:56 | Progress Note ---
Assessment and Plan Pt now comfortable Pitocin @ 8mu and will increase per protocol SVE 8,70,-1 Anticipate delivery Subjective - Subjective Date of service: 12/29/17 (comfortable with 2nd epidural) Patient reports: movement normal, contractions Objective - Vital Signs Vital Signs: Vital Signs - 12hr 12/29/17 12/29/17 12/29/17 17:50 17:53 17:56 Temperature 96.4 F L Pulse Rate 87 85 88 Respiratory 18 Rate Blood Pressure Blood Pressure 123/77 [Left] O2 Sat by Pulse 99 100 84 Oximetry 12/29/17 12/29/17 12/29/17 17:58 18:03 18:08 Temperature Pulse Rate 85 86 82 Respiratory Rate Blood Pressure Blood Pressure [Left] O2 Sat by Pulse 98 97 98 Oximetry 12/29/17 12/29/17 12/29/17 18:13 18:18 18:23 Temperature Pulse Rate 84 87 78 Respiratory Rate Blood Pressure Blood Pressure [Left] O2 Sat by Pulse 100 99 100 Oximetry 12/29/17 12/29/17 12/29/17 18:28 18:30 18:32 Temperature Pulse Rate 95 H 93 H 100 H Respiratory Rate Blood Pressure 142/82 136/79 134/75 Blood Pressure [Left] O2 Sat by Pulse 100 Oximetry 12/29/17 12/29/17 12/29/17 18:33 18:34 18:36 Temperature Pulse Rate 97 H 92 H 86 Respiratory Rate Blood Pressure 133/78 137/76 Blood Pressure [Left] O2 Sat by Pulse 99 Oximetry 12/29/17 12/29/17 12/29/17 18:38 18:41 18:42 Temperature Pulse Rate 90 88 88 Respiratory Rate Blood Pressure 123/81 127/84 127/74 Blood Pressure [Left] O2 Sat by Pulse 99 Oximetry 12/29/17 12/29/17 12/29/17 18:43 18:44 18:46 Temperature Pulse Rate 91 H 81 80 Respiratory Rate Blood Pressure 130/78 129/80 Blood Pressure [Left] O2 Sat by Pulse 99 Oximetry 12/29/17 12/29/17 12/29/17 18:48 18:53 18:58 Temperature Pulse Rate 77 82 82 Respiratory Rate Blood Pressure 131/87 130/77 Blood Pressure [Left] O2 Sat by Pulse 99 100 100 Oximetry 12/29/17 12/29/17 12/29/17 19:03 19:08 19:13 Temperature Pulse Rate 82 86 83 Respiratory Rate Blood Pressure Blood Pressure [Left] O2 Sat by Pulse 99 99 100 Oximetry 12/29/17 12/29/17 12/29/17 19:18 19:23 19:28 Temperature Pulse Rate 81 88 94 H Respiratory Rate Blood Pressure 133/82 Blood Pressure [Left] O2 Sat by Pulse 99 100 99 Oximetry 12/29/17 12/29/17 12/29/17 19:33 19:38 19:43 Temperature Pulse Rate 85 81 83 Respiratory Rate Blood Pressure Blood Pressure [Left] O2 Sat by Pulse 99 100 100 Oximetry 12/29/17 12/29/17 12/29/17 19:48 19:53 19:56 Temperature Pulse Rate 88 82 86 Respiratory Rate Blood Pressure 116/74 Blood Pressure [Left] O2 Sat by Pulse 100 100 Oximetry 12/29/17 12/29/17 12/29/17 19:58 20:07 20:09 Temperature Pulse Rate 100 H 98 H Respiratory Rate Blood Pressure 121/74 121/72 Blood Pressure [Left] O2 Sat by Pulse 91 100 Oximetry 12/29/17 12/29/17 12/29/17 20:11 20:14 20:15 Temperature Pulse Rate 112 H 112 H 94 H Respiratory Rate Blood Pressure 115/58 107/56 Blood Pressure [Left] O2 Sat by Pulse 100 91 Oximetry 12/29/17 12/29/17 12/29/17 20:17 20:19 20:21 Temperature Pulse Rate 91 H 95 H 97 H Respiratory Rate Blood Pressure 105/61 98/54 110/52 Blood Pressure [Left] O2 Sat by Pulse 97 Oximetry 12/29/17 12/29/17 12/29/17 20:23 20:24 20:29 Temperature Pulse Rate 87 91 H 94 H Respiratory Rate Blood Pressure 92/52 Blood Pressure [Left] O2 Sat by Pulse 100 86 Oximetry 12/29/17 12/29/17 12/29/17 20:31 20:34 20:35 Temperature Pulse Rate 99 H 83 101 H Respiratory Rate Blood Pressure 100/61 101/58 Blood Pressure [Left] O2 Sat by Pulse 100 Oximetry 12/29/17 12/29/17 12/29/17 20:36 20:37 20:39 Temperature Pulse Rate 101 H 100 H 88 Respiratory Rate Blood Pressure 103/50 Blood Pressure [Left] O2 Sat by Pulse 82 L 100 Oximetry 12/29/17 12/29/17 12/29/17 20:40 20:44 20:45 Temperature Pulse Rate 97 H 91 H 90 Respiratory Rate Blood Pressure 113/56 110/58 Blood Pressure [Left] O2 Sat by Pulse 100 93 Oximetry 12/29/17 12/29/17 20:49 20:50 Temperature Pulse Rate 105 H 94 H Respiratory Rate Blood Pressure 103/58 Blood Pressure [Left] O2 Sat by Pulse 92 Oximetry - Exam Breasts: deferred Cardiovascular: Regular rate Lungs: Normal air movement Abdomen: Present: normal appearance, soft. Absent: distention, tenderness Uterus: Present: normal FHR: auscultation normal Uterine Contraction Monitor Mode: Internal Cervical Dilatation: 8 (ISE/IUPC placed) Cervical Effacement Percentage: 70 station: -1 Uterine Contraction Pattern: Irregular Uterine Tone Measurement Phase: Resting Uterine Contraction Intensity: Moderate Extremities: normal Deep Tendon Reflex Grade: Normal +2 - Labs Labs: Abnormal Labs 12/29/17 17:10 WBC 12.3 H MCV 98 H MCH 35 H MCHC 36 H Laboratory Results - last 24 hr 12/29/17 12/29/17 17:10 17:10 WBC 12.3 H RBC 3.90 Hgb 13.5 Hct 38.0 MCV 98 H MCH 35 H MCHC 36 H RDW 14.2 Plt Count 264 Blood Type O POSITIVE Antibody Screen Negative
[2017-12-29] MEDS ORDERED: AMPICILLIN/NS 1 GM/50 ML 1 GM/50 ML BAG IV SCH (21:28)
[2017-12-29] MEDS ORDERED: LANSINOH TP PRN (22:35)
[2017-12-29] MEDS ORDERED: TYLENOL PO PRN (22:35)
[2017-12-29] MEDS ORDERED: NORCO 5/325 PO PRN (22:35)
[2017-12-29] MEDS ORDERED: BENADRYL PO PRN (22:35)
[2017-12-29] MEDS ORDERED: PHENERGAN PO PRN (22:35)
[2017-12-29] MEDS ORDERED: MILK OF MAGNESIA PO PRN (22:35)
[2017-12-29] MEDS ORDERED: DULCOLAX PR PRN (22:35)
[2017-12-29] MEDS ORDERED: TUCKS PAD TP PRN (22:35)
--- NOTE | 2017-12-29 22:45 | Procedure Note ---
OB Delivery Note - Delivery Date of Delivery: 12/29/17 Surveillance Sensor Officer: SHELLEY ESPINOSA Estimated blood loss: 300cc - Vaginal Delivery presentation: vertex Delivery position: OA Intrapartum events: none Delivery induction: none Delivery augmentation: pitocin Delivery monitor: internal FHT, internal uterine Route of delivery: Delivery placenta: spontaneous Delivery cord: 3 umbilical vessels Episiotomy: none Delivery laceration: none Anesthesia: epidural Delivery comments: live born male over intact perineum Pt declined skin to skin. Cord clamped and cut Cord blood obt Placenta and membrane del complete and intact, 3 vessel cord. Pit IVFs 8/9, EBL 300, Wgt 8-6 Mom and baby remain LDR stable. - Infant A at 1 minute: 8 at 5 minutes: 9 Infant Gender: Male (wgt 8-6)
[2017-12-29] MEDS ORDERED: SODIUM CHLORIDE FLUSH SYRINGE 10 ML IV NR (23:00)
[2017-12-30] MEDS: MOTRIN PO SCH ×3 (05:01→17:50)
[2017-12-30] MEDS ORDERED: M-M-R II VACCINE SUB-Q ONE (06:00)
[2017-12-30] MEDS ORDERED: BOOSTRIX IM ONE (06:00)
--- NOTE | 2017-12-30 08:49 | Progress Note ---
Assessment and Plan Patient doing well <12hrs post vaginal delivery. Fundus firm, lochia scant, patient is caring for , bottle feeding. H&H ordered for 1030 this morning. Continue pathway and anticipate d/c home tomorrow. - Patient Problems (1) Spontaneous vaginal delivery Current Visit: Yes Status: Acute Subjective - Subjective Date of service: 12/30/17 Principal diagnosis: day #1 s/p Patient reports: appetite normal, voiding normally, pain well controlled, ambulating normally, no dizzy ambulation, no nauseated : doing well, bottle feeding Objective - Vital Signs Latest vital signs: Vital Signs Temp Pulse Resp BP BP BP Pulse Ox 12/30/17 02:15 98.5 F 84 18 114/76 99 12/30/17 00:18 88 123/77 12/30/17 00:15 80 98 12/30/17 00:10 86 96 12/30/17 00:07 88 85 12/30/17 00:05 82 98 12/30/17 00:03 85 117/72 12/30/17 00:00 84 98 12/29/17 23:59 78 93 12/29/17 23:55 77 99 12/29/17 23:50 87 98 12/29/17 23:48 97.4 F L 86 16 119/69 119/69 98 12/29/17 23:47 80 92 12/29/17 23:45 80 99 12/29/17 23:40 92 H 98 12/29/17 23:35 82 99 12/29/17 23:33 87 121/73 12/29/17 23:31 90 81 L 12/29/17 23:30 88 99 12/29/17 23:25 91 H 99 12/29/17 23:20 99 H 97 12/29/17 23:16 99 H 90 12/29/17 23:15 96 H 96 12/29/17 23:10 95 H 94 12/29/17 23:05 90 99 12/29/17 23:03 90 117/63 12/29/17 23:00 98 H 66 L 12/29/17 22:59 98.1 F 94 H 120/64 12/29/17 22:56 96 H 72 L 12/29/17 22:55 95 H 100 12/29/17 22:50 92 H 98 12/29/17 22:48 88 120/64 12/29/17 22:45 101 H 99 12/29/17 22:42 99 H 66 L 12/29/17 22:40 96 H 98 12/29/17 22:37 94 H 17 111/63 98 12/29/17 22:35 104 H 97 12/29/17 22:33 91 H 111/63 12/29/17 22:29 97 H 98 12/29/17 22:18 88 108/59 12/29/17 22:04 96 H 98 12/29/17 22:03 91 H 111/59 12/29/17 21:59 92 H 100 12/29/17 21:54 89 100 12/29/17 21:49 85 105/62 100 12/29/17 21:44 92 H 100 12/29/17 21:39 97 H 100 12/29/17 21:34 97 H 126/70 100 12/29/17 21:29 104 H 100 12/29/17 21:28 18 12/29/17 21:24 91 H 100 12/29/17 21:19 89 105/67 100 12/29/17 21:14 87 100 12/29/17 21:09 96 H 100 12/29/17 21:04 94 H 100 12/29/17 21:00 96/55 12/29/17 20:59 99 H 100 12/29/17 20:55 103 H 97/56 12/29/17 20:54 100 H 94 12/29/17 20:50 94 H 103/58 12/29/17 20:49 105 H 92 12/29/17 20:45 90 110/58 93 12/29/17 20:44 91 H 100 12/29/17 20:40 97 H 113/56 12/29/17 20:39 88 100 12/29/17 20:37 100 H 103/50 12/29/17 20:36 101 H 82 L 12/29/17 20:35 101 H 101/58 12/29/17 20:34 83 100 12/29/17 20:31 99 H 100/61 18 20:29 94 H 86 12/29/17 20:24 91 H 100 12/29/17 20:23 87 92/52 12/29/17 20:21 97 H 110/52 12/29/18 20:19 95 H 98/54 97 25/18 20:17 91 H 105/61 18 20:15 94 H 107/56 91 12/29/18 20:14 112 H 100 12/29/18 20:11 112 H 115/58 12/29/18 20:09 98 H 121/72 100 12/29/18 20:07 100 H 121/74 12/29/18 19:58 91 12/29/18 19:56 86 116/74 12/29/18 19:53 82 100 25/18 19:48 88 100 12/29/18 19:43 83 100 12/29/18 19:38 81 100 18 19:33 85 99 18 19:28 94 H 133/82 99 18 19:23 88 100 18 19:18 81 99 12/29/18 19:13 83 100 18 19:08 86 99 18 19:03 82 99 18 18:58 82 100 18 18:53 82 130/77 100 18 18:48 77 131/87 99 18 18:46 80 129/80 18 18:44 81 130/78 18 18:43 91 H 99 18 18:42 88 127/74 18 18:41 88 127/84 18 18:38 90 123/81 99 18 18:36 86 137/76 18 18:34 92 H 133/78 18 18:33 97 H 99 18 18:32 100 H 134/75 18 18:30 93 H 136/79 12/29/18 18:28 95 H 142/82 100 12/29/18 18:23 78 100 12/29/18 18:18 87 99 12/29/18 18:13 84 100 12/29/18 18:08 82 98 25/18 18:03 86 97 25/18 17:58 85 98 25/18 17:56 88 84 12/29/18 17:53 85 100 09/25/18 17:50 96.4 F L 87 18 123/77 99 Intake and Output 12/29/17 12/30/17 12/30/17 23:59 07:59 15:59 Intake Total 10.467 Output Total 300 Balance 10.467 -300 Intake: IV 10.467 PITOCin/NS 30 UNIT/500ML 10.467 30 units In 500 ml @ 4 mls/hr IV TITR CHRISTEL Rx#: [id number] Output: Urine 300 Void 300 Other: Total, Output Amount 300 # Voids Void 1 Weight 81.647 kg Estimated Blood Loss 300 - Exam Breasts: Present: normal Cardiovascular: Present: Regular rate Lungs: Present: Clear to auscultation, Normal air movement Abdomen: Present: normal appearance, soft Vulva: both: normal Uterus: Present: normal, firm, fundal height at umbilicus Extremities: Present: normal - Labs Labs: Abnormal lab results 12/29/17 Range/Units 17:10 WBC 12.3 H (4.5-11.0) K/mm3 MCV 98 H (79-97) fl MCH 35 H (28-32) pg MCHC 36 H (30-34) %
[2017-12-30 11:04] LABS: Hematocrit 34.3 % (30.3-42.9); Hemoglobin 11.6 gm/dl (10.1-14.3)
[2017-12-30] MEDS: COLACE PO SCH (17:47)
[2017-12-30] MEDS: PRENATAL VITAMIN PO SCH (17:48)
[2017-12-31] MEDS: MOTRIN PO SCH ×2 (06:26)
--- NOTE | 2017-12-31 06:41 | Discharge Summary ---
Providers - Providers Date of Admission: 12/29/17 17:13 Date of discharge: 12/31/17 (pt agrees with d/c ) Attending physician: MALACHI LEON Primary care physician: MALACHI LEON Hospitalization Reason for admission: active labor Delivery: Episiotomy: none Laceration: none Incision: normal Other procedures: none complications: none Discharge diagnosis: IUP at term delivered baby: male Hospital course: uncomplicated vaginal delivery Pt w/o complaint VSS FF below umb Lochia small Perineum intact H&H stable No s/sx of anemia Doing well s/p vag delivery P: d/c today with instructions RTO 1 week Circ and 4 weeks PP care. Condition at discharge: Good Disposition: DC-01 TO HOME OR SELFCARE - Discharge Diagnoses (1) Spontaneous vaginal delivery Status: Acute Comment: RTO 4 weeks PP care Plan - Discharge Medications Prescriptions: Ibuprofen [Motrin 800 MG tab] 800 mg PO Q8HR PRN #30 tablet PRN Reason: Pain Lidocain2.5%/Prilocai2.5% [Emla] 5 gm TP ONCE PRN #1 tube PRN Reason: Pain - Provider Discharge Summary Activity: routine, no sex for 6 weeks, no heavy lifting 4 weeks, no strenuous exercise Diet: routine Instructions: routine Additional instructions: [] Smoking cessation referral if applicable(refer to patient education folder for contact #) [] Refer to [facility] Booklet Call your doctor immediately for: * Fever > 100.5 * Heavy vaginal bleeding ( >1 pad per hour) * Severe persistent headache * Shortness of breath * Reddened, hot, painful area to leg or breast * Drainage or odor from incision. * Keep incision clean and dry at all times and follow doctor's instructions regarding bathing/showering - Follow up plan Follow up: MALACHI LEON MD [Primary Care Provider] - 7 Days (Congratulations! Please call [phone] to schedule your visit in 4 weeks and your son's circumcision in 1 week. Bring the EMLA cream with you to his visit. Do NOT use at home. Call with any concerns.)
[2017-12-31] MEDS: COLACE PO SCH (09:58)
[2017-12-31] MEDS: PRENATAL VITAMIN PO SCH (09:58)
[2017-12-31 10:31] VITALS: BP 117/81
== END 2017-12-31 16:00 | disposition home or self-care (01) | DRG 775 ==
LOC: LD 17:13 → OB 12-30 03:49
PROVIDERS: ADMIT Obstetrics & Gynecology; ATTEND Obstetrics & Gynecology
PROC: 10E0XZZ Delivery of Products of Conception, External Approach (ICD-10-PCS; principal; 2017-12-29)
PROC: 3E0R3BZ Introduction of Anesthetic Agent into Spinal Canal, Percutaneous Approach (ICD-10-PCS; 2017-12-29)
PROC: 00HU33Z Insertion of Infusion Device into Spinal Canal, Percutaneous Approach (ICD-10-PCS; 2017-12-29)
PROC: 3E0234Z Introduction of Serum, Toxoid and Vaccine into Muscle, Percutaneous Approach (ICD-10-PCS; 2017-12-30)
DX: O99.824 Streptococcus B carrier state complicating childbirth (principal); Z3A.40 40 weeks gestation of pregnancy; Z37.0 Single live birth; Z23 Encounter for immunization
CPT/HCPCS: 36415; 85014; 85018; 85027; 86592; 86850; 86900; 86901; 99211; G0463; J0290; J2405; J2590; J7120

== ENCOUNTER 2018-09-15 15:33 | Emergency (ER) | payer MEDICAID ==
--- NOTE | 2018-09-15 16:42 | Emergency Department Report ---
Blank Doc - Documentation Documentation: This is a 28-year-old female that presents with chest pain, left lower pelvic area, and back pain. This initial assessment/diagnostic orders/clinical plan/treatment(s) is/are subject to change based on patient's health status, clinical progression and re- assessment by fellow clinical providers in the ED. Further treatment and workup at subsequent clinical providers discretion. Patient/guardians urged not to elope from the ED as their condition may be serious if not clinically assessed and managed. Initial orders include: 1- Patient sent to [facility] for further evaluation and treatment 2- EKG 3- UA 4- CXR
[2018-09-15 17:36] LABS: HCG Qualitative,Urine Negative (Negative)
[2018-09-15 17:39] LABS: Bacteria,Urine 2+ /HPF (Negative); Bilirubin,Urine NEG (Negative); Blood,Urine SM (Negative); Color,Urine Yellow (Yellow); Protein,Urine <15 mg/dL mg/dL (Negative); Urobilinogen,Urine < 2.0 mg/dL (<2.0)
--- NOTE | 2018-09-15 18:01 | XRay Report ---
PROCEDURE: XR CHEST ROUTINE 2V TECHNIQUE: PA and lateral chest radiographs were obtained. HISTORY: cp COMPARISONS: None. FINDINGS: Slight thoracic spine curvature with lower right apex. There is no visible pulmonary consolidation. No evidence of pneumothorax. No radiographically visible pleural effusion. Cardiac silhouette size is normal without vascular congestion. No visible acute displaced fracture in the regional skeleton. IMPRESSION: No acute cardiopulmonary disease in the visualized chest. This document is electronically signed by Olvin Wisdom MD., September 15 2018 05:58:53 PM ET
[2018-09-15] MEDS ORDERED: ASPIRIN PO ONE (20:01)
[2018-09-15 20:48] LABS: Hemoglobin 13.5 gm/dl (10.1-14.3); Mean Corpuscular HGB Conc 34 % (30-34); Mean Corpuscular Volume 97 fl (79-97); Red Cell Distribution Width 13.1 % (13.2-15.2)
[2018-09-15 21:09] LABS: Alanine Aminotransferase 12 units/L (7-56); Albumin 4.7 g/dL (3.9-5); BUN/Creatinine Ratio 16; Blood Urea Nitrogen 13 mg/dL (7-17); Calcium 9.9 mg/dL (8.4-10.2); Hemolysis Index 17
[2018-09-15 21:50] LABS: Basophils % (Manual) 0 % (0.0-1.8); Eosinophils % (Manual) 0 % (0.0-4.3); Total Cells Counted 100
[2018-09-15 21:51] LABS: Anisocytosis Few; Large Platelets Few; Platelet Estimate Consistent w Auto; Poikilocytosis Few
[2018-09-15 21:52] LABS: Platelet Count 263 K/mm3 (140-440)
--- NOTE | 2018-09-15 22:59 | Cat Scan Report ---
PROCEDURE: CT ABDOMEN PELVIS W CON TECHNIQUE: Computerized axial tomography of the abdomen and pelvis was performed after the IV inject ion of iodinated nonionic contrast. CT DOSE LENGTH PRODUCT: 2076.7 mGycm HISTORY: abdominal pain COMPARISONS: None . FINDINGS: Visualized lower thorax: No significant abnormality. Liver: Normal size and attenuation. Spleen: Normal size and attenuation. Gallbladder and biliary system: Normal. Pancreas: Normal. Adrenals: Normal. Kidneys: Normal. GI tract: Normal. Lymph nodes and mesentery: Normal. Vasculature: Normal.. Bladder: Normal. Reproductive organs: Normal. Peritoneum: No free fluid. Musculoskeletal structures: No significant abnormality. Other: There is some free fluid noted in the lower pelvis IMPRESSION: Free fluid noted in the lower pelvis Otherwise negative study This document is electronically signed by Kade Gamez MD., September 15 2018 10:57:15 PM ET
--- NOTE | 2018-09-15 23:46 | Emergency Department Report ---
ED Chest Pain HPI - General Chief Complaint: Chest Pain Stated Complaint: CHEST TIGHTNESS/ABD /BACK PAIN Time Seen by Provider: 09/15/18 16:41 Source: patient Mode of arrival: Ambulatory Limitations: No Limitations - History of Present Illness Initial Comments: Patient is a 28-year-old -[place] female with no past medical history presents to the ED with a complaint of acute onset persistent left-sided chest tightness, shortness of breath for the last 24 hours intermittently. Patient also complains of low back pain and left flank pain that radiates to the left lower quadrant area for the last 1 week. Patient denies nausea, vomiting, dysur ia, urinary frequency and urgency, hematuria, vaginal bleeding, dizziness, headache, diarrhea, traumatic injury or heavy lifting, diaphoresis, headache, palpitations, cough, fever, chills, nasal and sinus congestion or neck pain. MD Complaint: chest pain, other (Left flank pain that radiates to the LLQ area; low back pain) -: Sudden, week(s) Onset: awoke with symptoms Pain Location: substernal, left chest (left chest tightness) Pain Radiation: none Severity: severe Severity scale (0 -10): 7 Quality: tightness, aching Consistency: constant Improves With: nothing Worsens With: nothing Context: other (Spontaneous) re: nausea, vomting. denies: dyspnea, sense of impending doom Other Symptoms: denies: cough, fever, syncope, rash, acid taste in mouth, leg swelling, palpitations, burping Treatments Prior to Arrival: none - Related Data On Oral Contraceptives: No Previous Rx's Medication Instructions Recorded Last Taken Type Labetalol [Labetalol 100mg TAB] 300 mg PO BID 1 Days #60 tablet 01/31/18 Unknown Rx Naproxen [Naprosyn] 500 mg PO Q12H PRN #20 tablet 09/15/18 Unknown Rx Ranitidine HCl [Zantac] 150 mg PO Q12H #20 tablet 09/15/18 Unknown Rx hydrOXYzine PAMOATE [Vistaril] 25 mg PO Q6HR PRN #24 capsule 09/15/18 Unknown Rx tiZANidine [Zanaflex 4mg TAB] 4 mg PO Q8H PRN #15 tablet 09/15/18 Unknown Rx traMADol [Ultram] 50 mg PO Q6HR PRN #15 tablet 09/15/18 Unknown Rx Lisinopril/Hydrochlorothiazide 1 tab PO QDAY #30 tab 09/16/18 Unknown Rx [Zestoretic 20-12.5 mg] Allergies Allergy/AdvReac Type Severity Reaction Status Date / Time No Known Allergies Allergy Verified 01/29/18 10:48 Heart Score - HEART Score History: Slightly suspicious EKG: Normal Age: < 45 Risk factors: No known risk factors Troponin: < normal limit HEART Score: 0 - Critical Actions Critical Actions: 0-3 pts:0.9-1.7%risk of adverse cardiac event.Candidate for discharge ED Review of Systems ROS: Stated complaint: CHEST TIGHTNESS/ABD /BACK PAIN Other details as noted in HPI Comment: All other systems reviewed and negative Constitutional: denies: chills, fever Eyes: denies: eye pain, eye discharge, vision change ENT: denies: ear pain, throat pain Respiratory: shortness of breath. denies: cough, SOB with exertion, SOB at rest, wheezing Cardiovascular: chest pain (Left sided tightness). denies: palpitations Endocrine: no symptoms reported. denies: see HPI, excessive sweating, flushing, increased hunger, increased urine, unexplained weight gain Gastrointestinal: abdominal pain (left flank that radiates to the LLQ). denies: nausea, vomiting, diarrhea, constipation, hematemesis, melena Genitourinary: denies: urgency, dysuria, discharge, abnormal menses, dyspareunia Musculoskeletal: back pain (lower), arthralgia. denies: joint swelling Skin: denies: rash, lesions, change in color, change in hair/nails Neurological: denies: headache, weakness, paresthesias Psychiatric: denies: anxiety, depression Hematological/Lymphatic: denies: easy bleeding, easy bruising ED Past Medical Hx - Past Medical History Previous Medical History?: No Hx Hypertension: No Hx Heart Attack/AMI: No Hx Congestive Heart Failure: No Hx Diabetes: No Hx Deep Vein Thrombosis: No Hx Liver Disease: No Hx Renal Disease: No Hx Sickle Cell Disease: No Hx Seizures: No Hx Asthma: No Hx COPD: No Hx HIV: No - Surgical History Past Surgical History?: No Hx Pacemaker: No Hx Internal Defibrillator: No - Social History Smoking Status: Never Smoker Substance Use Type: None - Medications Home Medications: Home Medications Medication Instructions Recorded Confirmed Last Taken Type Labetalol [Labetalol 100mg TAB] 300 mg PO BID 1 Days #60 tablet 01/31/18 Unknown Rx Naproxen [Naprosyn] 500 mg PO Q12H PRN #20 tablet 09/15/18 Unknown Rx Ranitidine HCl [Zantac] 150 mg PO Q12H #20 tablet 09/15/18 Unknown Rx hydrOXYzine PAMOATE [Vistaril] 25 mg PO Q6HR PRN #24 capsule 09/15/18 Unknown Rx tiZANidine [Zanaflex 4mg TAB] 4 mg PO Q8H PRN #15 tablet 09/15/18 Unknown Rx traMADol [Ultram] 50 mg PO Q6HR PRN #15 tablet 09/15/18 Unknown Rx Lisinopril/Hydrochlorothiazide 1 tab PO QDAY #30 tab 09/16/18 Unknown Rx [Zestoretic 20-12.5 mg] ED Physical Exam - General Limitations: No Limitations General appearance: alert, in no apparent distress - Head Head exam: Present: atraumatic, normocephalic, normal inspection - Eye Eye exam: Present: normal appearance, PERRL, EOMI. Absent: scleral icterus, conjunctival injection, nystagmus, periorbital swelling, periorbital tenderness - ENT ENT exam: Present: normal exam, normal orophraynx, mucous membranes moist, TM's normal bilaterally, normal external ear exam - Neck Neck exam: Present: normal inspection, full ROM. Absent: tenderness, meningismus, lymphadenopathy, thyromegaly - Respiratory Respiratory exam: Present: normal lung sounds bilaterally. Absent: respiratory distress, wheezes, rales, chest wall tenderness, accessory muscle use, decreased breath sounds, prolonged expiratory - Cardiovascular Cardiovascular Exam: Present: regular rate, normal rhythm, normal heart sounds. Absent: systolic murmur, diastolic murmur, rubs, gallop - GI/Abdominal GI/Abdominal exam: Present: soft, normal bowel sounds. Absent: tenderness, guarding, rebound, hyperactive bowel sounds, hypoactive bowel sounds, o rganomegaly, mass, bruit - Rectal Rectal exam: Present: deferred - Extremities Exam Extremities exam: Present: normal inspection, full ROM, normal capillary refill - Back Exam Back exam: Present: normal inspection, tenderness (palpable lumbosacral paraspinal musculoskeletal tenderness), muscle spasm, paraspinal tenderness. Absent: CVA tenderness (R), CVA tenderness (L), vertebral tenderness - Neurological Exam Neurological exam: Present: alert, oriented X3, CN II-XII intact, normal gait, reflexes normal - Psychiatric Psychiatric exam: Present: normal affect, normal mood, anxious - Skin Skin exam: Present: warm, dry, intact, normal color. Absent: rash ED Course Vital Signs 09/15/18 09/15/18 09/15/18 16:41 20:55 23:51 Temperature 99.4 F 97.8 F Pulse Rate 88 129 H 73 Respiratory 20 16 15 Rate Blood Pressure 164/105 Blood Pressure 157/115 [Left] O2 Sat by Pulse 100 100 99 Oximetry - Reevaluation(s) Reevaluation #1: 09/16/18 00:04 Patient is alert and oriented 3 and is not in distress. Patient was hypertensive in triage and tachycardic as well. Lab test results were reviewed and are all unremarkable including troponin levels and d-dimer levels. Chest x- ray shows no acute cardiopulmonary abnormalities. EKG shows normal sinus rhythm with a ventricular rate of [address] or T-wave abnormalities or pathological Q waves. Patient was treated for pain and on reevaluation, patient's pain is well controlled with medications. The abdomen and pelvis CT scan with contrast shows no acute abdomen or pelvic pathology. COMFORT score - Comfort Score Age > 65: (0) No Aspirin use within the Past 7 Days: (0) No 3 or more CAD Risk Factors: (0) No 2 or more Angina events in past 24 hrs: (0) No Known CAD with more than 50% Stenosis: (0) No Elevated Cardiac Markers: (0) No ST Deviation Greater than 0.5mm: (0) No COMFORT Score: 0 ED Medical Decision Making - Lab Data Result diagrams: 09/15/18 20:15 09/15/18 20:15 - EKG Data EKG shows normal: sinus rhythm Rate: normal - EKG Data Interpretation: normal EKG 09/16/18 00:06 Normal sinus rhythm, ventricular rate of 82 bpm, no ST or T-wave abnormalities or pathological Q waves. - Radiology Data Radiology results: report reviewed, image reviewed Chest x-ray: No acute cardiopulmonary abnormalities Abdomen-pelvis CT Scan w/contrast: No acute pathology identified in the abdomen or pelvic areas. - Medical Decision Making Patient is alert and oriented 3 and is not in distress. Patient was hypertensive in triage and tachycardic as well. Lab test results were reviewed and are all unremarkable including troponin levels and d-dimer levels. Chest x- ray shows no acute cardiopulmonary abnormalities. EKG shows normal sinus rhythm with a ventricular rate of [address] or T-wave abnormalities or p athological Q waves. Patient was treated for pain and on reevaluation, patient's pain is well controlled with medications. The abdomen and pelvis CT scan with contrast shows no acute abdomen or pelvic pathology. The patient's heart score is 0, and the patient has no cardiac risk factors except for hypertension which is poorly controlled because the patient stopped taking medications over a year ago. The troponin level was normal as well as d-dimer levels. Patient was discharged home on medications and advised to follow-up with her primary care physician in 2-3 days for reevaluation or return to the ED immediately if symptoms get worse. Patient was given a prescription for lisinopril HCTZ 20-12.5 mg daily for hypertension. - Differential Diagnosis nonspecific chest pain; Back muscle spasm; PE, AMI, Kidney stones, anxiety Critical care attestation.: If time is entered above; I have spent that time in minutes in the direct care of this critically ill patient, excluding procedure time. ED Disposition Clinical Impression: Nonspecific chest pain, Spasm of muscle of lower back, Anxiety as acute reaction to exceptional stress, Uncontrolled hypertension, stage 1 GERD (gastroesophageal reflux disease) Qualifiers: Esophagitis presence: without esophagitis Qualified Code(s): K21.9 - Gastro- esophageal reflux disease without esophagitis Disposition: DC- TO HOME OR SELFCARE Is pt being admited?: No Does the pt Need Aspirin: No Condition: Stable Instructions: Chest Pain (ED), Acute Low Back Pain (ED), Thoracic Pain (ED), Muscle Spasm (ED), Hypertension (ED) Additional Instructions: Take medication at home, drink plenty of fluids and follow-up with her primary care physician in 7-10 days for reevaluation. Return to the ED immediately if symptoms get worse. Prescriptions: Naproxen [Naprosyn] 500 mg PO Q12H PRN #20 tablet PRN Reason: Pain , Severe (7-10) traMADol [Ultram] 50 mg PO Q6HR PRN #15 tablet PRN Reason: Pain hydrOXYzine PAMOATE [Vistaril] 25 mg PO Q6HR PRN #24 capsule PRN Reason: Anxiety tiZANidine [Zanaflex 4mg TAB] 4 mg PO Q8H PRN #15 tablet PRN Reason: Spasms Ranitidine HCl [Zantac] 150 mg PO Q12H #20 tablet Lisinopril/Hydrochlorothiazide [Zestoretic 20-12.5 mg] 1 tab PO QDAY #30 tab Referrals: [facility] [Outside] - 3-5 Days Time of Disposition: 23:47 Print Language: [id number]
[2018-09-16 00:16] VITALS: BP 154/96
== END 2018-09-16 00:15 | disposition home or self-care (01) ==
LOC: ED 15:33
DX: K21.9 Gastro-esophageal reflux disease without esophagitis (principal); I10 Essential (primary) hypertension; F41.1 Generalized anxiety disorder; F43.0 Acute stress reaction; M62.830 Muscle spasm of back; R10.9 Unspecified abdominal pain
CPT/HCPCS: 36415; 71046; 74177; 80053; 81001; 81025; 83690; 84484; 85007; 85025; 85379; 93005; 93010; 99285; Q9967